=== PATIENT | male | born 1965 | race Two or more races ===

== ENCOUNTER 2018-12-09 09:07 | Inpatient (IN) | payer OTHER ==
[2018-12-09] MEDS ORDERED: Aspirin Chewable 81 MG TAB ONE (09:29)
[2018-12-09] MEDS ORDERED: Nitroglycerin 2% Ointment 1 INCH/1 GM Packet ONE (09:29)
[2018-12-09 09:36] LABS: #Basophils 0.1 thou/uL (0.0-0.2); #Eosinphils 0.4 thou/uL (0.0-0.7); #Lymphocytes 1.7 thou/uL (1.20-3.40); #Monocytes 0.5 thou/uL (0.11-0.59); %Basophils 0.7 % (0.0-1.0); %Eosinophils 3.6 % (0.0-10.0); %Lymphocytes 14.8 % (21.0-51.0); %Monocytes 4.2 % (0.0-10.0); %Neutrophils 76.7 % (42.0-75.0); Hemoglobin 13.4 g/dL (14.0-18.0); Mean Corpuscular HGB CONC 32.8 g/dL (32.0-36.0); Mean Corpuscular Hemoglobin 27.5 pg (27.0-31.0); Mean Corpuscular Volume 83.9 fL (78.0-98.0); Mean Platelet Volume 9.2 fL (7.4-10.4); Platelet Count 214 thou/uL (130-400); RBC Distribution Width 12.6 % (11.5-14.5); Red Blood Cell (RBC) Count 4.87 mill/uL (4.70-6.10); White Blood Cell (WBC) Count 11.7 thou/uL (4.8-10.8)
[2018-12-09 09:49] LABS: ALT (SGPT) 58 U/L (8-55); AST (SGOT) 32 U/L (5-34); Albumin 4.2 g/dL (3.5-5.0); Alkaline Phosphatase 64 U/L (40-110); Anion Gap 16 mmol/L (10-20); BUN (Urea Nitrogen) 12 mg/dL (8.4-25.7); Bilirubin, Total 0.9 mg/dL (0.2-1.2); CK (CPK) 127 U/L (30-200); Calc. Creatinine Clearance 0 mL/min (70-130); Calcium 9.3 mg/dL (7.8-10.44); Carbon Dioxide 23 mmol/L (22-29); Chloride 105 mmol/L (98-107); Estimated GFR-MDRD Greater than 90; Globulin 3.1 g/dL (2.4-3.5); Glucose 118 mg/dL (70-105); Lipase 12 U/L (8-78); Potassium 4.6 mmol/L (3.5-5.1); Protein, Total 7.3 g/dL (6.0-8.3); Sodium 139 mmol/L (136-145)
--- NOTE | 2018-12-09 09:52 | RAD ---
Exam: Chest one view HISTORY:Chest Comparison: None FINDINGS: Cardiac silhouette:Upper normal cardiac silhouette. Aorta: Unremarkable Pulmonary vessels: Normal Costophrenic angles: Clear LUNGS: No masses or consolidation. Pneumothorax: None Osseous abnormalities: None IMPRESSION: No acute cardiopulmonary process.
[2018-12-09 13:08] LABS: Troponin I 0.225 ng/mL (< 0.028)
[2018-12-09] MEDS ORDERED: Senokot S 8.6-50 MG TAB PO PRN (14:09)
[2018-12-09] MEDS ORDERED: Sodium Chloride 0.65% Nasal 44 ML BOT EA NARE PRN (14:09)
[2018-12-09] MEDS ORDERED: hydrALAZINE 20 MG/ML VIAL SLOW IVP PRN (14:09)
[2018-12-09] MEDS ORDERED: HYDROcodone/Acetaminophen 5/325 mg Tablet PO PRN (14:09)
[2018-12-09] MEDS ORDERED: Bisacodyl 10 MG SUPP PR PRN (14:09)
[2018-12-09] MEDS ORDERED: Ondansetron ODT 4 MG TAB PO PRN (14:09)
[2018-12-09] MEDS ORDERED: Nitroglycerin 0.4 MG TAB (25 Tab Bottle) SL PRN (14:09)
[2018-12-09] MEDS ORDERED: Ondansetron PF 4 MG/2 ML Vial IVP PRN (14:09)
[2018-12-09] MEDS ORDERED: Zolpidem Tartrate 5 MG TAB PO PRN (14:09)
[2018-12-09] MEDS ORDERED: Acetaminophen 325 MG TAB PO PRN (14:09)
[2018-12-09] MEDS ORDERED: Diabetic Tussin 200 MG/10 ML UDCUP PO PRN (14:09)
[2018-12-09] MEDS ORDERED: Loratadine 10 MG TAB PO PRN (14:09)
[2018-12-09] MEDS ORDERED: Loperamide HCl 2 MG CAP PO PRN (14:09)
[2018-12-09] MEDS ORDERED: Calcium Carbonate 500 MG ChewTAB PO PRN (14:09)
[2018-12-09] MEDS ORDERED: Iopamidol 370 76% 100 ML VIAL ONE (14:45)
[2018-12-09] MEDS ORDERED: Iopamidol 370 76% 50 ML VIAL FS ONE (14:45)
--- NOTE | 2018-12-09 15:02 | HP ---
PRIMARY CARE PHYSICIAN: Dr. Nickie Huber. REASON FOR ADMISSION: Chest pain. HISTORY OF PRESENT ILLNESS: This is a 53-year-old male, who has underlying history of hypertension, dyslipidemia, obesity, who presented to emergency room with complaint of chest pain. The patient reports that early this morning when he was in prayer room, he was experiencing vague substernal chest discomfort along with diaphoresis and he was feeling left arm pain that lasted for about 5 to 10 minutes and subsequently, that episode subsided. He went from prayer center to his home and at home, he was experiencing exactly similar symptoms with diaphoresis, chest discomfort, and left arm pain and he took a couple of doses of baby aspirin by himself. His symptoms somewhat improved after while, but his left arm was bothering him. After that, he went to his workplace at [employer]. He was feeling initially for 1 hour normal, but then again he started feeling diaphoresis, chest discomfort which was substernal in location, associated with mild shortness of breath and left arm pain. At [employer] when he was working at that time, he had one episode of vomiting containing of food particle. After that, he started feeling dizziness, lightheaded and about to pass out. After this, he was intermittently experiencing diaphoresis and chest discomfort, but his left arm pain persistently not improving. After this, the patient called me and I advised him to go to emergency room. The patient drove himself to [facility], where he had initial troponin was negative and EKG was nonspecific. He was hemodynamically stable. At [facility], he had nitroglycerin patch applied. He felt better, but his blood pressure dropped and that is why nitroglycerin patch was discontinued and he was transferred to our hospital for further evaluation. His second troponin is abnormal. The patient currently do not have any diaphoresis or any chest discomfort, but he still feeling left arm pain. At [facility], he had one episode of diaphoresis and mild discomfort in his chest. At [facility], he was given aspirin, nitroglycerin patch, and IV fluid and subsequently, he was transferred to our hospital. PAST MEDICAL HISTORY: Hypertension, dyslipidemia, obesity. PAST SURGICAL HISTORY: Reviewed and negative. PAST PSYCHIATRIC HISTORY: Reviewed and negative. SOCIAL HISTORY: The patient is , lives at home with family. He is working in convenience store. He denies any tobacco, alcohol, or illicit drug abuse. FAMILY HISTORY: Positive for heart disease to his father by age of 70. ALLERGIES: NO KNOWN DRUG ALLERGIES. CURRENT HOME MEDICATIONS: 1. Aspirin 81 mg daily. 2. Lipitor 10 mg daily. 3. Lisinopril 10 mg p.o. daily. EMERGENCY ROOM COURSE: The patient is given IV fluid, aspirin, and nitroglycerin patch. REVIEW OF SYSTEMS: CONSTITUTIONAL: Negative for weight loss or gain, ability to conduct usual activities. SKIN: Negative for rash, itching. EYES: Negative for double vision, pain. ENT/MOUTH: Negative for nose bleeding, neck stiffness, pain, tenderness. CARDIOVASCULAR: Negative for palpitations, dyspnea on exertion, orthopnea. RESPIRATORY: Negative for shortness of breath, wheezing, cough, hemoptysis, fever or night sweats. GASTROINTESTINAL: Negative for poor appetite, abdominal pain, heartburn, nausea , vomiting, constipation, or diarrhea. GENITOURINARY: Negative for urgency, frequency, dysuria, nocturia. MUSCULOSKELETAL: Negative for pain, swelling. NEUROLOGIC/PSYCHIATRIC: Negative for anxiety, depression. ALLERGY/IMMUNOLOGIC: Negative for skin rash, bleeding tendency. Please see my HPI for pertinent positives and negatives. All other review of systems reviewed and negative except as mentioned in HPI. PHYSICAL EXAMINATION: VITAL SIGNS: Currently, blood pressure 124/88, pulse 67, respiratory rate 18, temperature 98.3, saturation 98% on room air. Weight 81.7 kg. GENERAL: The patient is currently alert and oriented x3. No obvious acute distress. HEENT: Head; normocephalic, atraumatic. Eyes; pupils round, reactive to light. Extraocular muscle intact. ENT, oropharynx within normal limits. Moist mucous membranes. No oral lesion. No pharyngeal erythema. No exudate. NECK: Supple. No JVD. No thyromegaly. No carotid bruit. No jugular venous distention. LUNGS: Clear to auscultation without any rhonchi or rales. CARDIAC: S1, S2 regular. No murmur. No gallop. No rub. ABDOMEN: Soft. Bowel sounds present. Obesity present. No peritoneal sign. No guarding. No rigidity. No rebound. BACK: Unremarkable. No CVA tenderness. EXTREMITIES: Upper extremities, passive movement of all joints are normal. Lower extremity, no edema. Good distal pulsation. SKIN: No skin rash. HEMATOLOGIC: No lymphadenopathy. NEUROLOGIC: Nonfocal examination. SIGNIFICANT LABORATORY DATA: EKG showing normal sinus rhythm, left axis deviation, nonspecific ST-T changes, sinus bradycardia. Chest x-ray based on my review no acute cardiopulmonary process. CBC; WBC 11.7, hemoglobin 13.4, platelet 214. BMP; sodium 139, potassium 4.6, chloride 105, carbon dioxide 23, BUN 12, creatinine 0.83, glucose 118, calcium 9.3. LFT; AST 32, ALT 58, alkaline phosphatase 64, albumin 4.2. CK 127, troponin I 0.027 and then 0.025. ASSESSMENT AND PLAN: 1. Unstable angina. The patient's history is classic for angina. He has recurrent anginal episode since this morning. At this point, we will keep him n.p.o. We will consult Cardiology for possible evaluation with cardiac catheterization today if possible. If not, then we will consider giving him Lovenox 1 mg/kg. We will keep him n.p.o. again if plan for cardiac cath tomorrow. We will continue with aspirin 325 mg p.o. daily, Lipitor 40 mg p.o. at bedtime. We will avoid nitroglycerin patch given hypotensive episode at other emergency room. We will only provide nitroglycerin p.r.n. basis. We will obtain EKG now and we will check lipid profile tomorrow. Healthy lifestyle measure discussed with the patient. 2. Hypertension. If blood pressure permits, then we will resume lisinopril as per home dosage while in hospital. 3. Dyslipidemia. We are going to check lipid profile tomorrow and continue with Lipitor 40 mg p.o. at bedtime. 4. Obesity. Dietary education given. Weight loss education given. Healthy lifestyle measure discussed with the patient. 5. DVT prophylaxis. If no plan for cardiac catheterization today, then I will give him Lovenox 1 mg/kg subcu twice daily. GI prophylaxis, Pepcid 20 mg p.o. b.i.d. CODE STATUS: The patient is full code. The patient's is surrogate decision maker. DISPOSITION PLAN: Based on Cardiology recommendation. Job ID: [id number] [facility]
[2018-12-09 15:05] VITALS: BMI 30.2
[2018-12-09] MEDS ORDERED: Nitroglycerin 100MG/250ML BOT 250 ML ONE (15:15)
[2018-12-09] MEDS ORDERED: Heparin 10,000 UNITS/1 ML VIAL ONE (15:15)
[2018-12-09] MEDS ORDERED: Verapamil 5 MG/2 ML VIAL ONE (15:15)
--- NOTE | 2018-12-09 16:03 | CON ---
DATE OF CONSULTATION: REASON FOR CONSULTATION: Type 1 KS. HISTORY OF PRESENT ILLNESS: Mr. Guzman is a very pleasant 53-year-old gentleman, who had acute onset chest pain this morning. He states he developed a chest pain and arm pain. He had associated diaphoresis in addition to nausea and vomiting. He states the nausea, vomiting, and diaphoresis resolved, but continues with left arm pain. PAST MEDICAL HISTORY: Hyperlipidemia and hypertension. SOCIAL HISTORY: No current tobacco or alcohol use. Currently . FAMILY HISTORY: Positive for CAD. ALLERGIES: NONE. MEDICATIONS: Include; 1. Lisinopril. 2. Lipitor. 3. Aspirin. PRIMARY CARE PROVIDER: Nickie Huber MD REVIEW OF SYSTEMS: A 10-point review of systems is reviewed and as above, otherwise negative. PHYSICAL EXAMINATION: VITAL SIGNS: Blood pressure 111/68, pulse 64, and temperature 97.7. GENERAL: Patient is a pleasant male who is in no acute distress. The patient appears their stated age. NEUROLOGIC: The patient is alert and oriented x3 with no focal neurologic deficits. HEENT: Sclerae without icterus. Mouth has moist mucous membranes with normal pallor. NECK: No JVD. Carotid upstroke brisk. No bruits bilaterally. LUNGS: Clear to auscultation with unlabored respirations. BACK: No scoliosis or kyphosis. CARDIAC: Regular rate and rhythm with normal S1 and S2. No S3 or S4 noted. No significant rubs, murmurs, thrills, or gallops noted throughout the precordium. PMI is not displaced. There is no parasternal heave. ABDOMEN: Soft, nontender, nondistended. No peritoneal signs present. No hepatosplenomegaly. No abnormal striae. EXTREMITIES: 2+ femoral and 2+ dorsalis pedis pulses. No cyanosis, clubbing, or edema. SKIN: No gross abnormalities. PERTINENT LABORATORY DATA: Hemoglobin 13.4 and white blood cell count 11.7. Creatinine 0.83. Peak troponin 0.2. EKG shows normal sinus rhythm, nonspecific ST-T wave changes. IMPRESSION: Type 1 myocardial infarction. RECOMMENDATIONS: Mr. Guzman does have risk factors for underlying coronary artery disease. His troponin is slightly elevated. Unfortunately, he continues to have left arm pain. At this point, recommend coronary angiography and possible PCI. I discussed procedure in full detail with Mr. Guzman, risks included, not limited to the following: , stroke, KS, need for emergency surgery, loss of limb, bleeding, and infection, as well as a reaction to the dye causing kidney failure and needing long-term dialysis. I also discussed the risks of PCI to include all of the above including coronary dissection and perforation in addition to acute stent thrombosis and restenosis. All questions about the procedure were answered. Given the above, the patient agreed to proceed with coronary angiography and possible PCI. All questions were answered. Given the above, the patient agreed to proceed with the above procedure. I also discussed drug-coated versus [id number] stent placement. There are no contraindication to proceed if needed. Job ID: [id number]
[2018-12-09] MEDS ORDERED: Adenosine 6 MG/2 ML VIAL ONE (16:18)
[2018-12-09] MEDS ORDERED: Clopidogrel Bisulfate 300 MG TAB ONE (16:18)
[2018-12-09] MEDS ORDERED: DOPamine 400 MG/D5W 250 ML 250 ML ONE (16:30)
[2018-12-09] MEDS ORDERED: Ondansetron PF 4 MG/2 ML Vial ONE (17:11)
[2018-12-09] MEDS ORDERED: Sodium Chloride 0.9% 1,000 ML IV SCH (17:15)
[2018-12-09] MEDS: Atorvastatin Calcium 40 MG TAB PO SCH (20:35)
[2018-12-09] MEDS: Famotidine 20 MG TAB PO SCH (20:35)
[2018-12-10] MEDS: FLU VACC QS2019-20(6MOS UP)/PF 60 MCG/0.5 ML SYRINGE IM ONE (05:19)
[2018-12-10 06:06] LABS: #Eosinphils 0.4 thou/uL (0.0-0.7); #Lymphocytes 2.3 thou/uL (1.20-3.40); #Monocytes 0.7 thou/uL (0.11-0.59); #Neutrophils 6.6 thou/uL (1.40-6.50); %Basophils 0.3 % (0.0-1.0); %Eosinophils 3.7 % (0.0-10.0); %Lymphocytes 22.9 % (21.0-51.0); %Monocytes 7.4 % (0.0-10.0); %Neutrophils 65.6 % (42.0-75.0); Mean Corpuscular HGB CONC 34.5 g/dL (32.0-36.0); Mean Platelet Volume 9.2 fL (7.4-10.4); Platelet Count 192 thou/uL (130-400); RBC Distribution Width 12.3 % (11.5-14.5); Red Blood Cell (RBC) Count 4.13 mill/uL (4.70-6.10)
[2018-12-10 06:31] LABS: ALT (SGPT) 53 U/L (8-55); AST (SGOT) 84 U/L (5-34); Albumin 3.7 g/dL (3.5-5.0); Alkaline Phosphatase 59 U/L (40-110); Anion Gap 8 mmol/L (10-20); BUN (Urea Nitrogen) 10 mg/dL (8.4-25.7); Calc. Creatinine Clearance 148 mL/min (70-130); Calcium 8.5 mg/dL (7.8-10.44); Carbon Dioxide 25 mmol/L (22-29); Cardiac Risk 3.6 (Less than 4.5); Chloride 106 mmol/L (98-107); Cholesterol 136 mg/dl (< 200 Desired); Estimated GFR-MDRD Greater than 90; Globulin 2.6 g/dL (2.4-3.5); Glucose 98 mg/dL (70-105); HDL Cholesterol 38 mg/dL (>60 Neg Risk); LDL Cholesterol, Calculated 70 mg/dL; Potassium 3.9 mmol/L (3.5-5.1); Protein, Total 6.3 g/dL (6.0-8.3); Sodium 135 mmol/L (136-145); Triglycerides 139 mg/dL (Less than 150)
[2018-12-10] MEDS ORDERED: Aspirin 325 mg Enteric Coated Tablet PO SCH (09:00)
[2018-12-10] MEDS: Famotidine 20 MG TAB PO SCH ×2 (09:24→20:48)
[2018-12-10] MEDS: Aspirin 81 mg Enteric Coated Tablet PO SCH (09:24)
[2018-12-10] MEDS: Clopidogrel Bisulfate 75 MG TAB PO SCH (09:24)
--- NOTE | 2018-12-10 10:59 | CON ---
DATE OF CONSULTATION: 12/10/2018 SERVICE: Pulmonary Medicine. REASON FOR CONSULTATION: ICU patient. HISTORY OF PRESENT ILLNESS: The patient is a 53-year-old male with past medical history significant for coronary artery disease that was recently identified. He is in his usual state of health when he woke up at 5 o'clock in the morning with chest discomfort. Never experienced this type of pain before. He presented to the emergency department 4 or 5 hours later and was identified as having unstable angina. He underwent emergent cardiac catheterization, and a stent was placed. He had immediate resolution in his chest discomfort. Overnight, he has had absolutely no difficulties with chest pain, nausea, vomiting, shortness of breath, or diaphoresis. He has a good appetite this morning, but has not had the opportunity to eat yet. He does not have any discomfort in his legs. PAST MEDICAL HISTORY: 1. Coronary artery disease. 2. Hypertension. 3. Dyslipidemia. PAST SURGICAL HISTORY: PCI with RIMA. SOCIAL HISTORY: Negative for alcohol, tobacco, or illicit drug use. He currently works in a convenience store. FAMILY HISTORY: Noncontributory. ALLERGIES: NO KNOWN DRUG ALLERGIES. MEDICATIONS: List of his inpatient medications was reviewed. No specific updates were made at this time. REVIEW OF SYSTEMS: General; head, ears, eyes, nose, throat; cardiovascular; respiratory; GI; ; musculoskeletal; neurologic; and skin are negative except as mentioned in the HPI. PHYSICAL EXAMINATION: VITAL SIGNS: Afebrile, pulse 71, blood pressure 106/72, respirations 19, and saturation 100% on room air. GENERAL: The patient is awake and alert, in no apparent distress. LUNGS: Very good air entry. There is no prolonged expiratory phase, wheezing, rhonchi, or crackles present. HEART: Normal rate and regular. ABDOMEN: Soft, nontender, and nondistended. Bowel sounds are positive. MUSCULOSKELETAL: No cyanosis or clubbing. No pitting in the bilateral lower extremities. NEUROLOGIC: Grossly nonfocal. LABORATORY DATA: WBC 10.0, hemoglobin 12.0, platelets 192,000. ACT 157. Basic metabolic profile and liver function studies are unremarkable. Troponin is gently up trending to 0.225. Lipase 12. ASSESSMENT: 1. Unstable angina. 2. Obstructive sleep apnea, strongly suspected. DISCUSSION AND PLAN: The patient is currently chest pain free. He is stable for transition out of the ICU to the telemetry unit. When he leaves the ICU, he will have no further requirements for inpatient Pulmonary or Critical Care opinion, and I will sign off. Please call with additional questions or concerns through time. I will have him follow up with me in the outpatient setting to investigate his suspected sleep apnea. 70 minutes have been devoted to this patient in various activities. I personally reviewed all imaging studies and laboratory data noted within this document. For fifty percent of this time, I was interacting with the patient at the bedside or coordinating care with the care team. For the remainder of the time I was immediately available to the patient in the hospital unit. Job ID: [id number] [facility]TDD
--- NOTE | 2018-12-10 11:54 | PDOC.HOSPP ---
- Subjective Encounter Date: 12/10/18 Encounter Time: 10:15 Subjective: pt had PCI with stent yesterday and after that he is asymptomatic, Patient seen and examined. No new complaints. No overnight events - Objective Vital Signs & Weight: Vital Signs (12 hours) Temp Pulse Ox 12/10/18 11:00 98.4 F 12/10/18 08:28 100 12/10/18 07:36 98 12/10/18 07:00 98.7 F 12/10/18 04:00 98.0 F 12/10/18 00:00 98.3 F Weight Weight 216 lb 11.43 oz Most Recent Monitor Data Heart Rate from ECG 86 NIBP 125/82 NIBP BP-Mean 89 Respiration from ECG 12 SpO2 97 I&O: 12/09/18 12/10/18 12/11/18 06:59 06:59 06:59 Intake Total 1494 450 Output Total 1275 450 Balance 219 0 Result Diagrams: 12/10/18 05:21 12/10/18 05:21 EKG Reviewed by me: Yes (NSR) Hospitalist ROS - Review of Systems Eyes: denies: pain, vision change, conjunctivae inflammation, eyelid inflammation, redness, other ENT: denies: ear pain, ear discharge, nose pain, nose discharge, nose congestion , mouth pain, mouth swelling, throat pain, throat swelling, other Respiratory: denies: cough, dry, shortness of breath, hemoptysis, SOB with excertion, pleuritic pain, sputum, wheezing, other Cardiovascular: denies: chest pain, palpitations, orthopnea, paroxysmal noc. dyspnea, edema, light headedness, other Gastrointestinal: denies: nausea, vomiting, abdominal pain, diarrhea, constipation, melena, hematochezia, other Genitourinary: denies: dysuria, frequency, incontinence, hematuria, retention, other Musculoskeletal: denies: neck pain, shoulder pain, arm pain, back pain, hand pain, leg pain, foot pain, other Skin: denies: rash, lesions, ashwini, bruising, other - Medication Medications: Active Medications Generic Name Dose Route Start Last Admin Trade Name Freq PRN Reason Stop Dose Admin Aspirin 81 mg 12/10/18 09:00 12/10/18 09:24 Ecotrin PO 81 mg DAILY ASIA Administration Atorvastatin Calcium 40 mg 12/09/18 21:00 12/09/18 20:35 Lipitor PO 40 mg HS ASIA Administration Clopidogrel Bisulfate 75 mg 12/10/18 09:00 12/10/18 09:24 Plavix PO 75 mg DAILY ASIA Administration Famotidine 20 mg 12/09/18 21:00 12/10/18 09:24 Pepcid PO 20 mg BID ASIA Administration - Exam General Appearance: NAD, awake alert Eye: PERRL, anicteric sclera ENT: normocephalic atraumatic, no oropharyngeal lesions Neck: supple, symmetric, no JVD, no thyromegaly Heart: RRR, no murmur, no gallops, no rubs, normal peripheral pulses Respiratory: CTAB, no wheezes, no rales, no ronchi, normal chest expansion Gastrointestinal: soft, non-tender, non-distended, normal bowel sounds, no hepatomegaly, no splenomegaly Extremities: no cyanosis, no clubbing, no edema Skin: normal turgor, no lesions, no rashes Neurological: cranial nerve grossly intact, normal sensation to touch, no focal deficits, no new deficit Musculoskeletal: normal tone, normal strength, no muscle wasting Psychiatric: normal affect, normal behavior, A&O x 3 Hosp A/P (1) Unstable angina Status: Acute (2) CAD (coronary artery disease) Code(s): I25.10 - ATHSCL HEART DISEASE OF [place] CORONARY ARTERY W/O ANG PCTRS Status: Acute Qualifiers: Coronary Disease-Associated Artery/Lesion type: [place] artery Associated angina: with unstable angina Plan: s/p PCI and stent placement (3) Hypertension Code(s): I10 - ESSENTIAL (PRIMARY) HYPERTENSION Status: Chronic Qualifiers: Hypertension type: essential hypertension Qualified Code(s): I10 - Essential (primary) hypertension (4) Dyslipidemia Code(s): E78.5 - HYPERLIPIDEMIA, UNSPECIFIED Status: Chronic (5) Obesity (BMI 30.0-34.9) Code(s): E66.9 - OBESITY, UNSPECIFIED Status: Chronic - Plan old records reviewed/req, plan discussed w/ family 12/10/18- continue aspirin, plavix, lipitor, monitor today, transfer to [facility], healthy lifestyle discussed with pt, medication reviewed as above, symptomatic treatment, discussed with , expecting discharge tomorrow
--- NOTE | 2018-12-10 13:43 | PRG ---
DATE OF SERVICE: 12/10/2018 SUBJECTIVE: Mr. Guzman is doing well. No current complaints. Left arm pain is dissipated. OBJECTIVE: VITAL SIGNS: Blood pressure , pulse 78, and temperature afebrile. LUNGS: Clear to auscultation. HEART: Regular rate and rhythm. ABDOMEN: Soft, nontender, nondistended. EXTREMITIES: No edema. PERTINENT LABORATORY DATA: Hemoglobin 12.0. Creatinine 0.81. Peak troponin 0.22. IMPRESSION: 1. Non-Q-wave myocardial infarction. 2. Hypertension. 3. Hyperlipidemia. RECOMMENDATIONS: 1. On aspirin, Plavix, and atorvastatin. 2. Add low-dose Toprol. 3. If blood pressure tolerates, add low-dose lisinopril. 4. Recommend cardiac rehab as an outpatient. 5. If the patient is stable in a.m., it would be okay for discharge with close outpatient followup. Job ID: [id number]
[2018-12-10] MEDS: Atorvastatin Calcium 40 MG TAB PO SCH (20:48)
[2018-12-11 07:31] VITALS: TEMP 97.7
[2018-12-11] MEDS: FLU VACC QS2019-20(6MOS UP)/PF 60 MCG/0.5 ML SYRINGE IM ONE (09:23)
[2018-12-11] MEDS: Famotidine 20 MG TAB PO SCH (09:23)
[2018-12-11] MEDS: Aspirin 81 mg Enteric Coated Tablet PO SCH (09:23)
[2018-12-11] MEDS: Clopidogrel Bisulfate 75 MG TAB PO SCH (09:23)
[2018-12-11 13:05] VITALS: BP 136/94
--- NOTE | 2018-12-12 00:20 | DIS ---
DATE OF ADMISSION: 12/09/2018 DATE OF DISCHARGE: 12/11/2018 DISCHARGE DISPOSITION: Home. FOLLOWUP: 1. Follow up with primary care physician, Dr. Nickie Huber in 1 week. 2. Follow up with Dr. Alonzo in 2 weeks. 3. Outpatient cardiac rehabilitation. ALLERGIES: NO KNOWN DRUG ALLERGIES. DISCHARGE MEDICATIONS: 1. Aspirin 81 mg daily. 2. Plavix 75 mg daily. 3. Lipitor 40 mg at bedtime. 4. Lisinopril 2.5 mg daily. 5. Toprol-XL 25 mg daily. 6. Sublingual nitroglycerin as needed. The patient was seen and examined on the day of discharge. Denies any new complaints. No chest pain, shortness of breath, or palpitations. BRIEF HOSPITAL COURSE: The patient is a 53-year-old male with hypertension and hyperlipidemia, presented to the hospital on 12/09/2018, with chest discomfort. His symptoms were suspicious for unstable angina. His troponin was 0.225. He was monitored in the intensive care unit with a nitroglycerin drip. He underwent a cardiac catheterization with two stents placement. Official cath report is pending at this time. He has been started on aspirin, Plavix, and statins. FINAL DIAGNOSES: 1. [id number] myocardial infarction. 2. Hypertension. 3. Hyperlipidemia. 4. Mild hyponatremia. 5. Chronic anemia. 6. Obesity with a BMI of 30.0. 7. Mild to moderate mitral regurgitation with mild left atrial dilatation. PLAN: Plan of care was discussed with the patient. He stated understanding. Job ID: [id number]
--- NOTE | 2018-12-13 11:33 | EKG ---
Test Reason : Blood Pressure : / mmHG Vent. Rate : 066 BPM Atrial Rate : 066 BPM P-R Int : 126 ms QRS Dur : 090 ms QT Int : 396 ms P-R-T Axes : 000 -21 -18 degrees QTc Int : 415 ms Normal sinus rhythm Inferior infarct (cited on or before 09-DEC-2018) Abnormal ECG When compared with ECG of 09-DEC-2018 17:44, (Unconfirmed) Fusion complexes are no longer Present Confirmed by Tomi VERGARA ([id number]) on 12/13/2018 11:33:19 AM Referred By: ELIO Confirmed By:Tomi VERGARA
--- NOTE | 2018-12-13 11:33 | EKG ---
Test Reason : Blood Pressure : / mmHG Vent. Rate : 073 BPM Atrial Rate : 073 BPM P-R Int : 144 ms QRS Dur : 092 ms QT Int : 392 ms P-R-T Axes : 009 -13 004 degrees QTc Int : 431 ms Sinus rhythm with Fusion complexes Inferior infarct , age undetermined Abnormal ECG No previous ECGs available Confirmed by Tomi VERGARA ([id number]) on 12/13/2018 11:32:55 AM Referred By: VERENICE Confirmed By:Tomi VERGARA
== END 2018-12-11 12:43 | disposition home or self-care (01) | DRG 247 ==
LOC: SCSER 09:07 → OBSVTOIN 10:05 → SCSERHOLD 10:05 → 2SW 14:18 → CCU 16:47 → 2NO 12-10 13:21
PROVIDERS: ADMIT Internal Medicine; ATTEND Internal Medicine
PROC: 027035Z Dilation of Coronary Artery, One Artery with Two Drug-eluting Intraluminal Devices, Percutaneous Approach (ICD-10-PCS; principal; 2018-12-09)
PROC: B2111ZZ Fluoroscopy of Multiple Coronary Arteries using Low Osmolar Contrast (ICD-10-PCS; 2018-12-09)
DX: I21.4 Non-ST elevation (NSTEMI) myocardial infarction (principal); E87.1 Hypo-osmolality and hyponatremia; E78.5 Hyperlipidemia, unspecified; I25.110 Atherosclerotic heart disease of native coronary artery with unstable angina pectoris; E78.00 Pure hypercholesterolemia, unspecified; I10 Essential (primary) hypertension; E66.9 Obesity, unspecified; G47.33 Obstructive sleep apnea (adult) (pediatric); D64.9 Anemia, unspecified; I34.0 Nonrheumatic mitral (valve) insufficiency; Z79.82 Long term (current) use of aspirin; Z79.899 Other long term (current) drug therapy; Z68.30 Body mass index [BMI] 30.0-30.9, adult
CPT/HCPCS: 36415; 71045; 76942; 80053; 80061; 82550; 83690; 84484; 85025; 90471; 90686; 92928; 93005; 93010; 93306; 93454; 93798; 94760; C1725; C1769; C1874; C1887; C9600; G0008; J0153; J1265; J1644; J2405; Q9967